=== PATIENT | female | born 1985 | race Caucasian/White ===

== ENCOUNTER → 2024-01-01 | Outpatient (CLI) | payer BC ==
--- NOTE | 2024-01-01 16:38 | US ---
EXAMINATION TYPE: US pelvic complete DATE OF EXAM: 01/01/2024 COMPARISON: NONE CLINICAL INDICATION: Female, 38 years old with history of R10.2 Pelvic pain; General pelvic pain x 1 day about 1 week ago; Patient denies any sings, symptoms, or relevant history TECHNIQUE: . Transabdominal sonographic images of the pelvis were acquired. Transvaginal sonographi c images were not medically necessary Date of LMP: EXAM MEASUREMENTS: Uterus: 7.3 x 4.2 x 5.3 cm Endometrial Stripe: 0.9 cm Right Ovary: 4.7 x 3.2 x 3.1 cm Left Ovary: 3.4 x 3.6 x 3.0 cm 1. Uterus: Retroverted wnl 2. Endometrium: wnl 3. Right Ovary: Simple cyst noted 4. Left Ovary: wnl 5. Bilateral Adnexa: wnl 6. Posterior cul-de-sac: trace fluid Retroverted uterus. Normal thickness endometrium. Dominant follicular cyst evident within the right o vary. Left ovary is unremarkable. Trace fluid in the posterior cul-de-sac which is likely physiologic . IMPRESSION: Unremarkable transabdominal pelvic ultrasound.
== END | disposition home or self-care (01) ==
LOC: RADUSWWP 09:26
PROVIDERS: ATTEND Family Medicine
DX: R10.2 Pelvic and perineal pain (principal)
CPT/HCPCS: 76856

== ENCOUNTER → 2024-07-08 | Outpatient (CLI) | payer BC ==
--- NOTE | 2024-07-11 09:33 | MM ---
Reason for Exam: Screening (asymptomatic). Patient History: Menarche at age 13. First Full-Term at age 27. Hormonal Contraceptives, from age 16 until age 26. Risk Values: Jennifer 5 year model risk: 0.5%. NCI Lifetime model risk: 11.2%. Tissue Density: The breasts are heterogeneously dense, which may obscure small masses. Analyzed By CAD. Overall Assessment: Benign, BI-RAD 2 Management: Screening Mammogram of both breasts at age 40. Electronically signed and approved by: Kapil Villanueva M.D.
== END | disposition home or self-care (01) ==
LOC: RADMAMWWP 16:07
PROVIDERS: ATTEND Obstetrics & Gynecology
DX: Z12.31 Encounter for screening mammogram for malignant neoplasm of breast (principal); R92.333 Mammographic heterogeneous density, bilateral breasts
CPT/HCPCS: 77063; 77067